=== PATIENT | male | born 2000 | race Two or more races ===

== ENCOUNTER 2025-01-18 19:10 | Emergency (ER) | payer MEDICAID ==
[~2025-01-18] VITALS: Ht 165.1 cm; Wt 81.8 kg
[2025-01-18 19:48] LABS: PLATELET COUNT (AUTO) 223 K/uL (150-450); RED BLOOD CELL COUNT(AUTO) 4.93 MIL/uL (4.50-5.90); RED CELL DISTRIBUTION WIDTH 12.6 % (11.5-14.5); WHITE BLOOD COUNT (AUTO) 11.9 K/uL (4.5-11.0)
[2025-01-18 20:12] LABS: CALCIUM, TOTAL 9.1 mg/dL (8.8-10.5); CREATININE 0.72 mg/dL (0.60-1.30); GLOMERULAR FILTR. RATE CALC > 60 mL/min (>60); GLUCOSE,RANDOM 127 mg/dL (70-110); SODIUM SERUM 137 mmol/L (136-145); UREA NITROGEN, BLOOD 11 mg/dL (7-18)
[2025-01-18 20:17] LABS: APPEARANCE,URINE HAZY (CLEAR); GLUCOSE, URINE (UA) NEGATIVE (NEGATIVE); LEUKOCYTE ESTERASE ,URINE NEGATIVE (NEGATIVE); NITRATE,URINE NEGATIVE (NEGATIVE); OCCULT BLOOD,URINE NEGATIVE (NEGATIVE); PH,URINE DRUG SCREEN 8.0 (5.0-8.0); SPECIFIC GRAVITIY, URINE 1.020 (1.003-1.030)
[2025-01-18 20:22] LABS: AMPHET/METH SCREEN,URINE NEGATIVE (NEGATIVE); BARBITURATE SCREEN, URINE NEGATIVE (NEGATIVE); CANNABINOID SCREEN,URINE NEGATIVE (NEGATIVE); COCAINE SCREEN,URINE NEGATIVE (NEGATIVE); METHADONE SCREEN, URINE NEGATIVE (NEGATIVE)
[2025-01-18 20:26] LABS: ALCOHOL, URINE DRUG SCREEN NEGATIVE (NEGATIVE)
[2025-01-18] MEDS: SODIUM CHLORIDE 0.9% 1,000 ML IV ONE (21:00)
[2025-01-18] MEDS: ONDANSETRON HCL 4 MG/2 ML VIAL IVP ONE (22:00)
[2025-01-18] MEDS: KETOROLAC TROMETHAMINE 30 MG/ML VIAL IVP ONE (22:00)
[2025-01-18] MEDS: POTASSIUM CHLORIDE 20 MEQ ER TABLET PO ONE (22:05)
[2025-01-18] MEDS: PB/HYOSCY/ATR/SCOP/LIDO/MAALOX 55 ML BOTTLE PO ONE (22:06)
[2025-01-18 22:14] LABS: ASPARTATE AMINOTRANSFERASE 33.0 U/L (15-37); TOTAL PROTEIN, SERUM 7.7 g/dL (6.4-8.2)
[2025-01-18 22:43] VITALS: BP 119/63; PULSE 75; RESP 20; TEMP 97.3; O2SAT 99
[2025-01-18] MEDS ORDERED: ONDA-104 PO (22:57)
[2025-01-18] MEDS ORDERED: ACET-66 PO (22:57)
[2025-01-18] MEDS ORDERED: OMEP-148 PO (22:57)
== END 2025-01-18 23:43 | disposition home or self-care (01) ==
LOC: EMS 19:10
DX: E87.6 Hypokalemia (principal); K52.9 Noninfective gastroenteritis and colitis, unspecified; R10.13 Epigastric pain; R11.10 Vomiting, unspecified; R51.9 Headache, unspecified
CPT/HCPCS: 99284; 96374; 96361; 96375; 80048; 80076; 81003; 83690; 85025; 36415; 80307; J1885; J2405; J7030